=== PATIENT | male | born 1985 | race African-American/Black ===

== ENCOUNTER 2022-02-13 12:04 | Emergency (ER) | payer BC, SELFPAY ==
--- NOTE | ~2022-02-13 | US_ITS ---
EXAMINATION: US scrotum doppler EXAM DATE: 02/13/2022 12:53 INDICATION: Left testicle pain. TECHNIQUE: Multiple grayscale and Doppler images of the testicles and scrotum were obtained bilateral ly. There is no prior study for comparison. FINDINGS: Scanning in left-sided pubis region scar reportedly from surgery 2 years ago demonstrates f ocal hypoechoic region, tiny focus of color flow demonstrated but uncertain whether or not this is ar tifact or actual vascularity. Cannot confirm whether this is proteinaceous fluid or a solid mass. Right testicle measures 3.9 x 2.2 x 2.0 cm and is morphologically normal. Low resistance Doppler jennyfer w confirmed. The epididymis is unremarkable. Small varicocele. Left testicle measures 2.4 x 2.6 x 2.5 cm and is morphologically normal. Low resistance Doppler flow confirmed. The epididymis is unremarkable. Small varicocele. IMPRESSION: 1. Focal hypoechoic region at location of patient's left suprapubic scar, complex fluid collection v ersus mass. Keloid? Please clinically correlate for further management. 2. Small bilateral varicoceles. Reviewed, dictated and finalized at location A. IMPRESSION: 1. Focal hypoechoic region at location of patient's left suprapubic scar, comp mercedez fluid collection versus mass. Keloid? Please clinically correlate for furth er management. 2. Small bilateral varicoceles.
--- NOTE | ~2022-02-13 | CT_ITS ---
EXAMINATION: CT abdomen pelvis w con DATE: 02/13/2022 14:05 INDICATION: Left testicular pain. Left lower quadrant abdominal pain. TECHNIQUE: Computed tomography (CT) of the abdomen and pelvis was performed without intravenous contr ast. Automated exposure control and iterative reconstruction technique were employed. The dose-length product was 831.75 mGy-cm. COMPARISON: None. FINDINGS: The visualized portions of the lung bases are clear without pneumonia or pleural effusion. The heart size is normal. No pericardial effusion. There are cysts in the kidneys measuring up to 11 mm. The gallbladder, spleen, pancreas, adrenal glands, and kidneys are normal. There is diverticulosi s of the colon without evidence of diverticulitis. The appendix is normal. There are no dilated loops of bowel. There are no pathologically enlarged lymph nodes. There is no free intraperitoneal fluid. There is a 2.9 x 0.9 x 1.1 cm skin lesion in the left groin, reportedly at a site of prior surgery. T here is mild lumbar spondylosis. IMPRESSION: 1. No specific etiology for the patient's symptoms. 2. 2.9 x 0.9 x 1.1 cm skin lesion in left groin, reportedly at a site of prior surgery, which may be a keloid. Correlate with physical exam. Reviewed, dictated and finalized at location B.
[2022-02-13 12:07] VITALS: BP 129/70; PULSE 72; RESP 16; TEMP 36.8; O2SAT 100
[2022-02-13] MEDS: HYDROcodone/acetaminophen (*CRX) 5-325 MG TABLET 1 TAB PO (12:24)
--- NOTE | 2022-02-13 12:25 | ED.GENADULT ---
HPI - General Adult General Chief complaint: Unspecified Stated complaint: Testicle Pain, Swelling Time Seen by Provider: 02/13/22 12:12 Source: RN notes reviewed History of Present Illness HPI narrative: Patient presents to emergency department from home via EMS for left groin pain. Patient states that this morning he awoke with severe sharp pain in his left groin he states that the pain is located right over a previous scar that he had from surgery 2 years ago done at [facility]. 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 States pain does radiate down into the testicle Related Data Allergies Allergy/AdvReac Type Severity Reaction Status Date / Time No Known Allergies Allergy Verified 02/13/22 12:26 Review of Systems Review of Systems: Gen.: Denies fevers or chills ENT: Denies congestion Respiratory: Denies shortness of breath or cough CV: Denies chest pain or palpitations GI: Denies abdominal pain, nausea, vomiting or diarrhea see HPI Musculoskeletal: Denies back pain or muscle pain Neuro: Denies numbness, tingling, weakness or focal weakness Skin: Denies rash Except as documented, all other systems reviewed and negative [facility] Past Medical History Medical History (Updated 02/13/22 @ 14:31 by Simeon Kwon DO) Patient denies significant medical history Social History Social History (Updated 02/13/22 @ 12:26 by Simeon Kwon DO) Smoking status: Never smoker Exam Narrative: APPEARANCE: No acute distress, nontoxic, resting in bed EYES: EOMI HEENT: Normocephalic, atraumatic, OMM RESPIRATORY: No respiratory distress Clear to auscultation bilaterally with no rhonchi wheezing or rales. CARDIOVASCULAR: Regular rate and rhythm without murmurs rubs or gallops. ABDOMINAL: Soft, nontender, nondistended, no rebound or guarding : The left groin just above the left scrotum has a surgical scar present that does have a keloid present there is no erythema or fluctuance there is mild tenderness over the left testicle there is no swelling of the scrotum no erythema of the scrotum no skin lesions MUSCULOSKELETAl: Moves all extremities. No clubbing, cyanosis or edema. NEURO: Awake and alert. Following commands, speech normal, no focal deficits SKIN:: Warm, dry. No rashes lesions or abrasions PSYCHIATRIC: Normal affect/mood, Course Course Emergency Course: Patient states pain is improved at this time Discussed with patient results of workup and diagnosis. Discussed need for follow-up with primary care, proper use of medication, and reasons to return to the emergency department. Patient understands and agrees to current treatment plan Vital Signs Vital signs: Vital Signs Temperature 98.3 F 02/13/22 12:07 Pulse Rate 72 02/13/22 12:07 Respiratory Rate 16 02/13/22 12:07 Blood Pressure 129/70 02/13/22 12:07 Pulse Oximetry 100 02/13/22 12:07 Temperature 97.6 F 02/13/22 13:43 Pulse Rate 58 L 02/13/22 13:35 Respiratory Rate 18 02/13/22 13:35 Blood Pressure 127/74 02/13/22 13:35 Pulse Oximetry 100 02/13/22 13:35 Medical Decision Making Vital Signs Vital Signs: Vital Signs Temperature 98.3 F 02/13/22 12:07 Pulse Rate 72 02/13/22 12:07 Respiratory Rate 16 02/13/22 12:07 Blood Pressure 129/70 02/13/22 12:07 Pulse Oximetry 100 02/13/22 12:07 Temperature 97.6 F 02/13/22 13:43 Pulse Rate 58 L 02/13/22 13:35 Respiratory Rate 18 02/13/22 13:35 Blood Pressure 127/74 02/13/22 13:35 Pulse Oximetry 100 02/13/22 13:35 Lab Data Result diagrams: 02/13/22 12:56 02/13/22 13:28 Labs: Lab Results 02/13/22 02/13/22 04
[2022-02-13 13:01] LABS: Basophils Percent Auto 0.5 % (0.2-1.2); Eosinophils Absolute Auto 0.1 K/mm3 (0-0.3); Hematocrit 45.7 % (42.0-52.0); Hemoglobin 14.6 g/dL (14.0-18.0); Immature Granulocyte Absolute 0.04 K/mm3 (0.00-0.031); Immature Granulocyte Percent A 0.5 % (0-0.5); Lymphocytes Absolute Auto 2.68 K/mm3 (0.9-3.2); Lymphocytes Percent Auto 32.2 % (18.3-44.2); Mean Corpuscular HGB Conc 31.9 g/dl (32-36); Mean Corpuscular Hemoglobin 27.3 pg (26-34); Mean Corpuscular Volume 85.4 fl (80-100); Mean Platelet Volume 10.8 fl (7.4-10.4); Monocytes Absolute Auto 0.7 K/mm3 (0.1-0.6); Monocytes Percent Auto 8.9 % (2.6-8.5); Neutrophils Absolute Auto 4.8 K/mm3 (1.3-6.7); Neutrophils Percent Auto 56.9 % (45.5-73.1); Platelet Count Result 218 k/mm3 (150-375); Red Blood Count 5.35 M/mm3 (4.6-6.20); Red Cell Distribution Width 14.1 % (11.5-14.5); White Blood Count 8.3 K/mm3 (4.5-10.0)
[2022-02-13 13:15] LABS: Alanine Aminotransferase 13 U/L (4-50); Albumin Level 4.6 g/dL (3.5-5.1); Alkaline Phosphatase 36 U/L (38-126); Anion Gap 43 mmol/L (8-16); Aspartate Amino Transferase 20 U/L (17-59); Bilirubin,Total 0.8 mg/dL (0.2-1.3); Blood Urea Nitrogen 8 mg/dL (9-20); Calcium 4.8 mg/dL (8.4-10.2); Carbon Dioxide 18 mmol/L (22-30); Chloride 84 mmol/L (98-107); Estimated CRCL calculation 140 ml/min; Estimated Glomerular Filt Rate > 60; Glucose 75 mg/dL (65-110); Potassium 3.1 mmol/L (3.4-5.0); Sodium 145 mmol/L (137-145)
[2022-02-13 13:29] VITALS: RESP 18; O2SAT 100
[2022-02-13 13:35] VITALS: BP 127/74; PULSE 58; RESP 18; TEMP 36.3; O2SAT 100
[2022-02-13 13:42] LABS: Add Urine Microscopic? NO; Appearance Urine Clear (Clear); Bilirubin Urine Negative (Negative); Blood Urine Negative (Negative); Color Urine Yellow (Yellow); Glucose Urine UA Negative (Negative); Ketones Urine Negative (Negative); Leukocyte Esterase Ur Negative LEU/UL (Negative); Nitrate Urine Negative (Negative); Protein Urine Negative (Negative); Specific Grav Ur 1.025 (1.001-1.035); Urobilinogen Urine 0.2 mg/dL (<2.0); pH Urine 6.5 (5.0-9.0)
[2022-02-13 13:43] VITALS: TEMP 36.4
[2022-02-13] MEDS: SODIUM CHLORIDE 0.9% IV 1,000 ML 999 ML IV CONT (13:43)
[2022-02-13 14:00] LABS: Anion Gap 5 mmol/L (8-16); Blood Urea Nitrogen 10 mg/dL (9-20); Carbon Dioxide 24 mmol/L (22-30); Chloride 105 mmol/L (98-107); Estimated CRCL calculation 114 ml/min; Estimated Glomerular Filt Rate > 60; Glucose 91 mg/dL (65-110); Potassium 3.9 mmol/L (3.4-5.0); Sodium 134 mmol/L (137-145)
[2022-02-13 14:46] VITALS: BP 137/86; PULSE 54; RESP 18; O2SAT 100
== END 2022-02-13 14:48 | disposition home or self-care (01) ==
PROVIDERS: Emergency Provider Emergency Medicine
DX: L91.0 Hypertrophic scar (principal); R10.32 Left lower quadrant pain; I86.1 Scrotal varices
CPT/HCPCS: 36415; 74177; 76870; 80048; 80053; 81003; 85025; 93976; 96360; 99284; A9270; J7030; Q9967

== ENCOUNTER 2022-03-30 20:58 | Emergency (ER) | payer BC, SELFPAY ==
[2022-03-30 21:50] VITALS: BP 143/82; PULSE 75; RESP 16; TEMP 36.8; O2SAT 100
[2022-03-30 23:23] VITALS: BP 143/97; PULSE 67; RESP 18; TEMP 36.3; O2SAT 100
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
[2022-03-30] MEDS: ONDANSETRON HCL ODT 4 MG TABLET PO (23:42)
[2022-03-31 00:24] LABS: Alanine Aminotransferase 13 U/L (6-50); Albumin Level 4.2 g/dL (3.5-5.1); Alkaline Phosphatase 51 U/L (38-126); Anion Gap 3 mmol/L (8-16); Aspartate Amino Transferase 24 U/L (17-59); Bilirubin,Total 0.9 mg/dL (0.2-1.3); Blood Urea Nitrogen 14 mg/dL (9-20); Carbon Dioxide 30 mmol/L (22-30); Chloride 107 mmol/L (98-107); Estimated CRCL calculation 88 ml/min; Estimated Glomerular Filt Rate > 60; Glucose 97 mg/dL (65-110); Lipase 177 U/L (23-300); Sodium 140 mmol/L (137-145)
[2022-03-31 00:27] LABS: Basophils Absolute Auto 0.1 K/mm3 (0.0-0.1); Basophils Percent Auto 0.5 % (0.2-1.2); Eosinophils Absolute Auto 0.1 K/mm3 (0-0.3); Eosinophils Percent Auto 1.3 % (0-4.4); Hematocrit 41.8 % (42.0-52.0); Immature Granulocyte Absolute 0.04 K/mm3 (0.00-0.031); Immature Granulocyte Percent A 0.4 % (0-0.5); Lymphocytes Absolute Auto 3.07 K/mm3 (0.9-3.2); Lymphocytes Percent Auto 33.3 % (18.3-44.2); Mean Corpuscular HGB Conc 33.5 g/dl (32-36); Mean Corpuscular Hemoglobin 27.8 pg (26-34); Mean Corpuscular Volume 83.1 fl (80-100); Mean Platelet Volume 11.5 fl (7.4-10.4); Monocytes Percent Auto 11.3 % (2.6-8.5); Neutrophils Absolute Auto 4.9 K/mm3 (1.3-6.7); Neutrophils Percent Auto 53.2 % (45.5-73.1); Platelet Count Result 203 k/mm3 (150-375); Red Blood Count 5.03 M/mm3 (4.6-6.20); White Blood Count 9.2 K/mm3 (4.5-10.0)
[2022-03-31 01:02] LABS: Amphetamine Screen Urine Negative (Negative); Barbiturate Screen Urine Negative (Negative); Benzodiazepines Screen Urine Negative (Negative); Cannabinoid Screen Urine Positive (Negative); Cocaine Screen Urine Negative (Negative); Methadone Screen Urine Negative (Negative); Opiate Screen Urine Negative (Negative); Phencyclidine Screen Urine Negative (Negative)
[2022-03-31 01:30] VITALS: BP 124/89; PULSE 57; RESP 18; O2SAT 100
== END 2022-03-31 01:31 | disposition home or self-care (01) ==
PROVIDERS: Physician Assistant; Emergency Provider Emergency Medicine
DX: F12.10 Cannabis abuse, uncomplicated (principal)
CPT/HCPCS: 36415; 80053; 80307; 83690; 85025; 99283; A9270

== ENCOUNTER 2022-07-13 11:41 | Emergency (ER) | payer BC, SELFPAY ==
--- NOTE | ~2022-07-13 | XR_ITS ---
EXAMINATION: XR chest 2V DATE: 07/13/2022 12:07 INDICATION: Cough TECHNIQUE: Frontal and lateral views of the chest are obtained COMPARISON: None available FINDINGS: The lungs are free of acute opacities. No pleural effusion or pneumothorax. The cardiomedia stinal silhouette is normal. The visualized bones and soft tissues are unremarkable. IMPRESSION: 1. No acute cardiopulmonary abnormality. Reviewed, dictated and finalized at location B.
[2022-07-13 12:00] VITALS: BP 125/83; PULSE 80; RESP 16; TEMP 36.4; O2SAT 97
[2022-07-13 12:22] VITALS: O2SAT 99
--- NOTE | 2022-07-13 13:32 | ED.GENADULT ---
HPI - General Adult General Chief complaint: Upper Respiratory Infection Stated complaint: cough Time Seen by Provider: 07/13/22 12:00 History of Present Illness HPI narrative: Patient is a 37-year-old male who presents ER with cough. Ongoing over the last 3 weeks. Associate with sinus congestion and thick postnasal drip. Worse at night when he is laying down flat. Associated productive cough. No fevers or chills or sweats. Has tried some [id number] decongestants without improvement. Related Data Allergies Allergy/AdvReac Type Severity Reaction Status Date / Time No Known Allergies Allergy Verified 07/13/22 12:19 Review of Systems Constitutional: Constitutional: Denies chills, Denies fatigue and Denies fever(s) ENT: Reports nasal congestion and Reports sore throat Respiratory: Respiratory: Reports cough, Denies dyspnea and Denies wheezing Gastrointestinal: Gastrointestinal: Denies abdominal pain, Denies nausea and Denies vomiting PMFSH Past Medical History Medical History (Updated 07/13/22 @ 13:39 by Jani Ponce MD) Patient denies significant medical history Surgical History Surgical History (Updated 07/13/22 @ 13:39 by Jani Ponce MD) No pertinent past surgical history Social History Social History (Updated 02/13/22 @ 12:26 by Simeon Kwon DO) Smoking status: Never smoker Exam Narrative: GENERAL: Well-appearing, well-nourished, and in no acute distress. HEAD: Normocephalic, atraumatic. EYES: PERRL and EOMI. ENT: Dry mucous membranes, normal-appearing posterior oropharynx without tonsillar hypertrophy or exudate. Uvula midline nonedematous. TMs normal bilaterally. NECK: Supple. CHEST: Clear to auscultation. No respiratory distress. HEART: Regular rate and rhythm. Normal peripheral pulses. EXTREMITIES: Normal range of motion. No edema. NEURO: Alert and oriented x3. PSYCH: Normal mood and affect. Course Course Emergency Course: Discussed supportive therapy. Encouraged humidified air at bedside as well as nasal saline washes, guaifenesin, and Cepacol. Vital Signs Vital signs: Vital Signs Temperature 97.5 F L 07/13/22 12:00 Pulse Rate 80 07/13/22 12:00 Respiratory Rate 16 07/13/22 12:00 Blood Pressure 125/83 07/13/22 12:00 Pulse Oximetry 97 07/13/22 12:00 Oxygen Delivery Room Air 07/13/22 12:00 Temperature 97.5 F L 07/13/22 12:00 Pulse Rate 80 07/13/22 12:00 Respiratory Rate 16 07/13/22 12:00 Blood Pressure 125/83 07/13/22 12:00 Pulse Oximetry 99 07/13/22 12:22 Oxygen Delivery Room Air 07/13/22 12:22 Medical Decision Making Vital Signs Vital Signs: Vital Signs Temperature 97.5 F L 07/13/22 12:00 Pulse Rate 80 07/13/22 12:00 Respiratory Rate 16 07/13/22 12:00 Blood Pressure 125/83 07/13/22 12:00 Pulse Oximetry 97 07/13/22 12:00 Oxygen Delivery Room Air 07/13/22 12:00 Temperature 97.5 F L 07/13/22 12:00 Pulse Rate 80 07/13/22 12:00 Respiratory Rate 16 07/13/22 12:00 Blood Pressure 125/83 07/13/22 12:00 Pulse Oximetry 99 07/13/22 12:22 Oxygen Delivery Room Air 07/13/22 12:22 Imaging Data Radiologist's impression: ITS Impressions Chest X-Ray 07/13/22 12:08 IMPRESSION: 1. No acute cardiopulmonary abnormality. Discharge Plan Discharge Clinical Impression: Upper respiratory infection Patient Disposition: Home, Self-Care Condition: Stable Instructions: Upper Respiratory Infection (ED) Additional Instructions: Return to the ER if you cannot breathe, you cannot keep down food or water, you have chest pain with exertion, you have additional concerns. Prescriptions: [place] Nasal Mist 0.65 % aerosol,spray 2 spray intranasal QID Qty: 44 0RF guaifenesin [Robafen] 100 mg/5 mL liquid 200 mg PO Q4H Qty: 473 0RF Cepacol Sore Throat (alexi-men) 15-2.6 mg lozenge 1 kenny mucous membrane Q2-4H PRN (Reason: sore throat)
== END 2022-07-13 14:05 | disposition home or self-care (01) ==
PROVIDERS: Emergency Provider Emergency Medicine
DX: J06.9 Acute upper respiratory infection, unspecified (principal)
CPT/HCPCS: 71046; 99283

== ENCOUNTER 2022-08-24 22:40 | Emergency (ER) | payer BC, SELFPAY ==
--- NOTE | ~2022-08-24 | XR_ITS ---
EXAMINATION: XR chest 1V portable INDICATION: Chest pain TECHNIQUE: Portable AP chest at 2256 hours COMPARISON: 07/13/2022 FINDINGS: The lungs are free of acute opacities. No pleural effusion or pneumothorax. The cardiomedia stinal silhouette is normal. IMPRESSION: 1. No acute cardiopulmonary abnormality. Reviewed, dictated and finalized at location F.
--- NOTE | 2022-08-24 22:40 | ECG_ITS ---
Measurements Intervals [place] Rate: 68 P: 64 FL: 187 QRS: 19 QRSD: 83 T: 45 QT: 372 QTc: 397 Interpretive Statements SINUS RHYTHM NORMAL ECG NO PREVIOUS ECG AVAILABLE FOR COMPARISON Electronically Signed On 08-25-2022 16:38:06 CDT by Wilver Mandujano M.D.
[2022-08-24 22:46] VITALS: BP 128/76; PULSE 66; RESP 12; TEMP 37.1; O2SAT 100
[2022-08-24 22:52] LABS: Basophils Absolute Auto 0.1 K/mm3 (0.0-0.1); Basophils Percent Auto 0.5 % (0.2-1.2); Eosinophils Absolute Auto 0.1 K/mm3 (0-0.3); Hematocrit 42.2 % (42.0-52.0); Immature Granulocyte Absolute 0.06 K/mm3 (0.00-0.031); Immature Granulocyte Percent A 0.6 % (0-0.5); Lymphocytes Absolute Auto 3.35 K/mm3 (0.9-3.2); Lymphocytes Percent Auto 32.7 % (18.3-44.2); Mean Corpuscular HGB Conc 33.2 g/dl (32-36); Mean Corpuscular Hemoglobin 27.5 pg (26-34); Mean Corpuscular Volume 82.9 fl (80-100); Mean Platelet Volume 11.7 fl (7.4-10.4); Monocytes Percent Auto 9.3 % (2.6-8.5); Neutrophils Absolute Auto 5.7 K/mm3 (1.3-6.7); Neutrophils Percent Auto 55.9 % (45.5-73.1); Platelet Count Result 219 k/mm3 (150-375); Red Blood Count 5.09 M/mm3 (4.6-6.20); Red Cell Distribution Width 14.3 % (11.5-14.5); White Blood Count 10.2 K/mm3 (4.5-10.0)
[2022-08-24] MEDS: HYDROmorphone HCL INJ (*CRX) 1 MG/ML SYR IV PUSH (22:53)
[2022-08-24 23:01] LABS: Partial Thromboplastin Time 30.8 SECONDS (22.3-36.8); Prothrombin Time 12.8 Seconds (11.1-14.7)
[2022-08-24 23:05] LABS: Alanine Aminotransferase 19 U/L (6-50); Albumin Level 4.5 g/dL (3.5-5.1); Alkaline Phosphatase 50 U/L (38-126); Anion Gap 8 mmol/L (8-16); Aspartate Amino Transferase 26 U/L (17-59); Blood Urea Nitrogen 15 mg/dL (9-20); Calcium 8.9 mg/dL (8.4-10.2); Carbon Dioxide 24 mmol/L (22-30); Chloride 103 mmol/L (98-107); Estimated CRCL calculation 112 ml/min; Estimated Glomerular Filt Rate > 60; Glucose 94 mg/dL (65-110); Lipase 322 U/L (23-300); Sodium 135 mmol/L (137-145)
--- NOTE | 2022-08-24 23:12 | ED.GENADULT ---
HPI - General Adult General Chief complaint: Chest Pain Stated complaint: CP POSSIBLE STEMI Time Seen by Provider: 08/24/22 22:47 History of Present Illness HPI narrative: Patient 77-year-old gentleman who presents the emergency department with a chief complaint of chest pain. Patient reports he has history of high cholesterol and reports for the last several days has been having some discomfort in his chest but today it got worse. Patient had significant heaviness or tightness patient reports that it radiates into his upper chest. Patient reports upon arrival to the emergency department he got nauseated. Patient called EMS today and was transported to our facility. The patient reports no prior cardiac cath or stress test. Related Data Allergies Allergy/AdvReac Type Severity Reaction Status Date / Time No Known Allergies Allergy Verified 08/24/22 22:49 Review of Systems Review of Systems: A 10 system review of systems was completed on the patient and is negative except for what is stated in the HPI. Nursing and ancillary documentation was reviewed. PMFSH Past Medical History Medical History Patient denies significant medical history Surgical History Surgical History No pertinent past surgical history Social History Social History Smoking status: Never smoker Exam Narrative: GENERAL: Well-appearing, well-nourished, and in no acute distress. HEAD: Normocephalic, atraumatic. EYES: PERRLA and EOMI. ENT: Nares clear, no rhinorrhea or epistaxis. Mucous membranes moist. NECK: Supple. CHEST: Clear to auscultation. No respiratory distress. HEART: Regular rate and rhythm. No murmur heard. Normal peripheral pulses. ABDOMEN: Soft, nontender, nondistended, normal active bowel sounds. EXTREMITIES: Normal range of motion. No edema. SKIN: Warm, dry, no rash. NEURO: No focal deficits. Alert and oriented x3. PSYCH: Normal mood and affect. Course Course Emergency Course: EKG is sinus rhythm rate of [address] elevation or ST depression Vital Signs Vital signs: Vital Signs Temperature 37.1 C 08/24/22 22:46 Pulse Rate 66 08/24/22 22:46 Respiratory Rate 12 08/24/22 22:46 Blood Pressure 128/76 08/24/22 22:46 Pulse Oximetry 100 08/24/22 22:46 Oxygen Delivery Room Air 08/24/22 22:46 Temperature 36.7 C 08/25/22 01:36 Pulse Rate 56 L 08/25/22 02:30 Respiratory Rate 16 08/25/22 02:30 Blood Pressure 112/82 08/25/22 02:30 Pulse Oximetry 100 08/25/22 02:30 Oxygen Delivery Room Air 08/24/22 22:46 Medical Decision Making Vital Signs Vital Signs: Vital Signs Temperature 37.1 C 08/24/22 22:46 Pulse Rate 66 08/24/22 22:46 Respiratory Rate 12 08/24/22 22:46 Blood Pressure 128/76 08/24/22 22:46 Pulse Oximetry 100 08/24/22 22:46 Oxygen Delivery Room Air 08/24/22 22:46 Temperature 36.7 C 08/25/22 01:36 Pulse Rate 56 L 08/25/22 02:30 Respiratory Rate 16 08/25/22 02:30 Blood Pressure 112/82 08/25/22 02:30 Pulse Oximetry 100 08/25/22 02:30 Oxygen Delivery Room Air 08/24/22 22:46 Lab Data Result diagrams: 08/24/22 22:47 08/24/22 22:47 Labs: Lab Results 08/24/22 08/24/22 08/24/22 Range/Units 22:47 22:47 22:47 WBC 10.2 H (4.5-10.0) K/mm3 RBC 5.09 (4.6-6.20) M/mm3 Hgb 14.0 (14.0-18.0) g/dL Hct 42.2 (42.0-52.0) % MCV 82.9 (80-100) fl MCH 27.5 (26-34) pg MCHC 33.2 (32-36) g/dl RDW 14.3 (11.5-14.5) % Plt Count 219 (150-375) k/mm3 MPV 11.7 H (7.4-10.4) fl Immature Gran % (Auto) 0.6 H (0-0.5) % Neut % (Auto) 55.9 (45.5-73.1) % Lymph % (Auto) 32.7 (18.3-44.2) % [place] % (Auto) 9.3 H (2.6-8.5) % Eos % (Auto) 1.0 (0-4.4) % Baso % (Auto) 0.5 (0.
[2022-08-24 23:17] LABS: Troponin I 0.016 ng/mL (0.000-0.034)
[2022-08-24 23:30] VITALS: BP 120/66; PULSE 58; RESP 16; O2SAT 99
[2022-08-25 00:30] VITALS: BP 119/68; PULSE 54; RESP 16; TEMP 36.8; O2SAT 100
[2022-08-25 01:36] VITALS: BP 113/71; PULSE 55; RESP 16; TEMP 36.7; O2SAT 99
--- NOTE | 2022-08-25 01:38 | PC.NURSE ---
sleeping no distress, still has discomfort with some positions
[2022-08-25 02:30] VITALS: BP 112/82; PULSE 56; RESP 16; O2SAT 100
[2022-08-25 02:32] LABS: Troponin I < 0.012 ng/mL (0.000-0.034)
[2022-08-25] MEDS: KETOROLAC 15 MG/ML VIAL (*BKC) IV PUSH (03:24)
--- NOTE | 2022-08-25 03:46 | PC.NURSE ---
noted patient sleeping comfortably at this time
[2022-08-25 04:15] VITALS: BP 104/68; PULSE 56; RESP 18; O2SAT 99
== END 2022-08-25 04:24 | disposition home or self-care (01) ==
PROVIDERS: Emergency Provider Emergency Medicine
DX: R07.89 Other chest pain (principal); E78.00 Pure hypercholesterolemia, unspecified
CPT/HCPCS: 36415; 71045; 80053; 83690; 84484; 85025; 85610; 85730; 93005; 96374; 99284; J1170; J1885

== ENCOUNTER 2022-09-20 13:40 | Emergency (ER) | payer BC, SELFPAY ==
[2022-09-20 14:10] VITALS: BP 131/85; PULSE 78; RESP 18; TEMP 36.6; O2SAT 97
[2022-09-20 15:28] LABS: Appearance Urine Clear (Clear); Bilirubin Urine Negative (Negative); Blood Urine Negative (Negative); Color Urine Yellow (Yellow); Glucose Urine UA Negative (Negative); Ketones Urine Negative (Negative); Leukocyte Esterase Ur Negative LEU/UL (Negative); Nitrate Urine Negative (Negative); Protein Urine Trace mg/dL (Negative); Specific Grav Ur 1.015 (1.001-1.035); Urobilinogen Urine 0.2 mg/dL (<2.0)
[2022-09-20 15:42] LABS: Add Urine Microscopic? YES; Bacteria Urine Trace /hpf; Mucus Urine Rare /lpf; RBC Urine 0-2 /hpf (0-2); Squamous Epithelial Cell Urine Rare /hpf (Few); WBC Urine 0-3 /hpf
[2022-09-20 15:43] LABS: Basophils Percent Auto 0.4 % (0.2-1.2); Hematocrit 43.4 % (42.0-52.0); Hemoglobin 14.8 g/dL (14.0-18.0); Immature Granulocyte Absolute 0.02 K/mm3 (0.00-0.031); Immature Granulocyte Percent A 0.4 % (0-0.5); Lymphocytes Absolute Auto 1.52 K/mm3 (0.9-3.2); Lymphocytes Percent Auto 31.3 % (18.3-44.2); Mean Corpuscular HGB Conc 34.1 g/dl (32-36); Mean Corpuscular Hemoglobin 27.3 pg (26-34); Mean Corpuscular Volume 80.1 fl (80-100); Mean Platelet Volume 12.2 fl (7.4-10.4); Monocytes Absolute Auto 1.2 K/mm3 (0.1-0.6); Monocytes Percent Auto 25.1 % (2.6-8.5); Neutrophils Absolute Auto 2.1 K/mm3 (1.3-6.7); Neutrophils Percent Auto 42.8 % (45.5-73.1); Platelet Count Result 156 k/mm3 (150-375); Red Blood Count 5.42 M/mm3 (4.6-6.20); Red Cell Distribution Width 13.8 % (11.5-14.5); White Blood Count 4.9 K/mm3 (4.5-10.0)
[2022-09-20 15:51] LABS: Alanine Aminotransferase 19 U/L (6-50); Albumin Level 4.5 g/dL (3.5-5.1); Alkaline Phosphatase 43 U/L (38-126); Anion Gap 9 mmol/L (8-16); Aspartate Amino Transferase 42 U/L (17-59); Bilirubin,Total 0.6 mg/dL (0.2-1.3); Blood Urea Nitrogen 16 mg/dL (9-20); Calcium 8.8 mg/dL (8.4-10.2); Carbon Dioxide 26 mmol/L (22-30); Chloride 100 mmol/L (98-107); Estimated CRCL calculation 415 ml/min; Estimated Glomerular Filt Rate > 60; Glucose 103 mg/dL (65-110); Lipase 371 U/L (23-300); Potassium 3.6 mmol/L (3.4-5.0); Sodium 135 mmol/L (137-145)
[2022-09-20 16:01] LABS: Influenza A QL RT-PCR Negative (Negative); Influenza B QL RT-PCR Negative (Negative); SARS-CoV-2 RNA PCR Positive
[2022-09-20 16:02] LABS: Platelet Estimate Adequate (Adequate); Schistocytes None Seen (NORMAL)
--- NOTE | 2022-09-20 16:14 | ED.FEVER ---
HPI - Fever General Chief Complaint: Fever Stated Complaint: chills, diarrhea Time Seen by Provider: 09/20/22 15:29 Source: patient Mode of arrival: ambulatory Limitations: no limitations History of Present Illness HPI Narrative: This is a 37 year old male that presents to the ER for diarrhea and chills. Ongoing since Sunday. Reports he was around some classmates that were sick. He is not vaccinated for COVID. Denies fever, abdominal pain, vomiting, cough, congestion or sore throat. Related Data Allergies Allergy/AdvReac Type Severity Reaction Status Date / Time No Known Allergies Allergy Verified 08/24/22 22:49 Review of Systems Review of Systems: CONSTITUTIONAL: Reports chills. Denies fever ENT: Reports congestion, sore throat RESPIRATORY: Denies cough GASTROINTESTINAL: Reports diarrhea. Denies abdominal pain, nausea, vomiting All systems reviewed & are unremarkable except as noted in HPI and below PMFSH Past Medical History Medical History Patient denies significant medical history Surgical History Surgical History No pertinent past surgical history Social History Social History Smoking status: Never smoker Exam Narrative: GENERAL: Well-appearing, well-nourished, and in no acute distress. HEAD: Normocephalic, atraumatic. EYES: EOMI. CHEST: Clear to auscultation. No respiratory distress. No wheezes rales or rhonchi HEART: Regular rate and rhythm. No murmur heard. Normal peripheral pulses. ABDOMEN: Soft, nontender, nondistended, normal active bowel sounds. EXTREMITIES: Normal range of motion. No edema. SKIN: Warm, dry, no rash. NEURO: No focal deficits. Alert and oriented x3. PSYCH: Normal mood and affect Course Vital Signs Vital signs: Vital Signs Temperature 97.8 F 09/20/22 14:10 Pulse Rate 78 09/20/22 14:10 Respiratory Rate 18 09/20/22 14:10 Blood Pressure 131/85 09/20/22 14:10 Pulse Oximetry 97 09/20/22 14:10 Oxygen Delivery Room Air 09/20/22 14:10 Temperature 97.8 F 09/20/22 14:10 Pulse Rate 74 09/20/22 17:35 Respiratory Rate 15 09/20/22 17:35 Blood Pressure 117/79 09/20/22 17:35 Pulse Oximetry 97 09/20/22 17:35 Oxygen Delivery Room Air 09/20/22 14:10 MDM - Fever MDM Narrative Medical decision making narrative: Patient presents to the ER for diarrhea and chills ongoing over the last couple of days. He is afebrile and nontoxic-appearing. His vitals are stable. CBC without concerning findings. Metabolic panel with mild dehydration. Patient given a liter of IV fluids in the ED. COVID screen is positive. Patient is not vaccinated. He was updated on case findings. Wishes to have treatment with Paxlovid. He was instructed on other continued symptomatic care of viral infection. He is to follow-up with primary care provider. He was given warnings to return to the ER Lab Data Attestation: I reviewed the patient's lab results. Result diagrams: 09/20/22 15:32 09/20/22 15:32 Labs: Lab Results 09/20/22 09/20/22 09/20/22 Range/Units 15:20 15:20 15:32 WBC 4.9 (4.5-10.0) K/mm3 RBC 5.42 (4.6-6.20) M/mm3 Hgb 14.8 (14.0-18.0) g/dL Hct 43.4 (42.0-52.0) % MCV 80.1 (80-100) fl MCH 27.3 (26-34) pg MCHC 34.1 (32-36) g/dl RDW 13.8 (11.5-14.5) % Plt Count 156 (150-375) k/mm3 MPV 12.2 H (7.4-10.4) fl Immature Gran % (Auto) 0.4 (0-0.5) % Neut % (Auto) 42.8 L (45.5-73.1) % Lymph % (Auto) 31.3 (18.3-44.2) % [place] % (Auto) 25.1 H (2.6-8.5) % Eos % (Auto) 0.0 (0-4.4) % Baso % (Auto) 0.4 (0.2-1.2) % Lymph # (Auto) 1.52 (0.9-3.2) K/mm3 [place] # (Auto) 1.2 H (0.1-0.6) K/mm3 Eos # (Auto) 0.0 (0-0.3) K/mm3 Baso # (Auto) 0.0 (0.0-0.1) K/mm3 Abs Katarzyna
[2022-09-20] MEDS: SODIUM CHLORIDE 0.9% IV 1,000 ML 999 ML IV CONT (16:21)
[2022-09-20 17:35] VITALS: BP 117/79; PULSE 74; RESP 15; O2SAT 97
[2022-09-20 18:21] VITALS: BP 152/84; PULSE 88; RESP 16; TEMP 37.3; O2SAT 97
== END 2022-09-20 18:22 | disposition home or self-care (01) ==
PROVIDERS: Emergency Medicine; Emergency Provider Emergency Medicine
DX: U07.1 COVID-19 (principal); Z28.310 Unvaccinated for COVID-19
CPT/HCPCS: 36415; 80053; 81001; 83690; 85025; 87636; 96360; 99283; J7030

== ENCOUNTER 2022-12-18 15:39 | Emergency (ER) | payer BC, SELFPAY ==
[2022-12-18 15:52] VITALS: BP 143/87; PULSE 66; RESP 16; TEMP 36.8; O2SAT 100
[2022-12-18 16:30] LABS: Basophils Percent Auto 0.4 % (0.2-1.2); Eosinophils Absolute Auto 0.1 K/mm3 (0-0.3); Eosinophils Percent Auto 1.2 % (0-4.4); Hemoglobin 14.7 g/dL (14.0-18.0); Immature Granulocyte Absolute 0.03 K/mm3 (0.00-0.031); Immature Granulocyte Percent A 0.4 % (0-0.5); Lymphocytes Absolute Auto 2.59 K/mm3 (0.9-3.2); Lymphocytes Percent Auto 33.1 % (18.3-44.2); Mean Corpuscular HGB Conc 32.7 g/dl (32-36); Mean Corpuscular Hemoglobin 27.4 pg (26-34); Mean Corpuscular Volume 83.8 fl (80-100); Mean Platelet Volume 10.9 fl (7.4-10.4); Monocytes Absolute Auto 0.7 K/mm3 (0.1-0.6); Monocytes Percent Auto 8.3 % (2.6-8.5); Neutrophils Absolute Auto 4.4 K/mm3 (1.3-6.7); Neutrophils Percent Auto 56.6 % (45.5-73.1); Platelet Count Result 240 k/mm3 (150-375); Red Blood Count 5.37 M/mm3 (4.6-6.20); White Blood Count 7.8 K/mm3 (4.5-10.0)
[2022-12-18 16:51] LABS: Alanine Aminotransferase 17 U/L (6-50); Albumin Level 4.9 g/dL (3.5-5.1); Alkaline Phosphatase 52 U/L (38-126); Anion Gap 5 mmol/L (8-16); Aspartate Amino Transferase 32 U/L (17-59); Bilirubin,Total 1.5 mg/dL (0.2-1.3); Blood Urea Nitrogen 10 mg/dL (9-20); Calcium 9.1 mg/dL (8.4-10.2); Carbon Dioxide 29 mmol/L (22-30); Chloride 100 mmol/L (98-107); Estimated Glomerular Filt Rate > 60; Glucose 87 mg/dL (65-110); Potassium 3.9 mmol/L (3.4-5.0); Sodium 134 mmol/L (137-145)
[2022-12-18 16:53] LABS: Ethanol < 10 mg/dL (<10)
[2022-12-18 17:21] LABS: Thyroid Stimulating Hormone 0.421 uIU/mL (0.465-4.680)
[2022-12-18 17:27] LABS: Influenza A QL RT-PCR Negative (Negative); Influenza B QL RT-PCR Negative (Negative); RSV RNA, RT-PCR Negative (Negative); SARS-CoV-2 RNA PCR Negative
[2022-12-18 17:58] LABS: Appearance Urine Clear (Clear); Bilirubin Urine 1+ (Negative); Blood Urine Negative (Negative); Color Urine Yellow (Yellow); Glucose Urine UA Negative (Negative); Ketones Urine 1+ mg/dL (Negative); Leukocyte Esterase Ur Negative LEU/UL (Negative); Nitrate Urine Negative (Negative); Protein Urine Trace mg/dL (Negative); Specific Grav Ur 1.025 (1.001-1.035); Urobilinogen Urine 0.2 mg/dL (<2.0)
[2022-12-18 18:03] LABS: Add Urine Microscopic? YES; Bacteria Urine Trace /hpf; Mucus Urine Few /lpf; WBC Urine 0-3 /hpf
[2022-12-18 18:22] LABS: Amphetamine Screen Urine Negative (Negative); Barbiturate Screen Urine Negative (Negative); Benzodiazepines Screen Urine Negative (Negative); Cannabinoid Screen Urine Positive (Negative); Cocaine Screen Urine Negative (Negative); Methadone Screen Urine Negative (Negative); Opiate Screen Urine Negative (Negative); Phencyclidine Screen Urine Negative (Negative)
[2022-12-18 19:01] VITALS: BP 139/82; PULSE 64; RESP 16; O2SAT 98
--- NOTE | 2022-12-18 19:23 | PC.NURSE ---
Pt states I feel like people are putting something in the food. I feel like my mom is putting something in my food to hurt me . When asked pt if he's ever been diagnosed with a mental health disorder pt states I was told all my life that I'm retarded. But now, my mind is waking up and I'm figuring things out . Pt denies HI, SI, or hallucinations. He is calm and cooperative at this time.
--- NOTE | 2022-12-18 19:34 | ED.GENADULT ---
HPI - General Adult General Chief complaint: Psychiatric Symptoms Stated complaint: feel like someone is trying to poison him Time Seen by Provider: 12/18/22 19:13 History of Present Illness HPI narrative: Patient patient is a 37-year-old gentleman who presents the emergency department with chief complaint of paranoid thoughts patient reports that he feels as though his mother is out to get him because he has been successful after he has gotten out of trouble. The patient denies suicidal or homicidal ideation patient reports no thoughts of harming himself or thoughts of harming others. Patient states he is just scared that his family may be out to get him now that he has had success in his life. Related Data Allergies Allergy/AdvReac Type Severity Reaction Status Date / Time No Known Allergies Allergy Verified 08/24/22 22:49 Review of Systems Review of Systems: A 10 system review of systems was completed on the patient and is negative except for what is stated in the HPI. Nursing and ancillary documentation was reviewed. PMFSH Past Medical History Medical History Patient denies significant medical history Surgical History Surgical History No pertinent past surgical history Social History Social History Smoking status: Never smoker Substance use type: marijuana Exam Narrative: GENERAL: Well-appearing, well-nourished, and in no acute distress. HEAD: Normocephalic, atraumatic. EYES: PERRLA and EOMI. ENT: Nares clear, no rhinorrhea or epistaxis. Mucous membranes moist. NECK: Supple. CHEST: Clear to auscultation. No respiratory distress. HEART: Regular rate and rhythm. No murmur heard. Normal peripheral pulses. ABDOMEN: Soft, nontender, nondistended, normal active bowel sounds. EXTREMITIES: Normal range of motion. No edema. SKIN: Warm, dry, no rash. NEURO: No focal deficits. Alert and oriented x3. PSYCH: Normal mood and affect. Course Vital Signs Vital signs: Vital Signs Temperature 36.8 C 12/18/22 15:52 Pulse Rate 66 12/18/22 15:52 Respiratory Rate 16 12/18/22 15:52 Blood Pressure 143/87 H 12/18/22 15:52 Pulse Oximetry 100 12/18/22 15:52 Oxygen Delivery Room Air 12/18/22 15:52 Temperature 36.8 C 12/18/22 15:52 Pulse Rate 64 12/18/22 19:01 Respiratory Rate 16 12/18/22 19:01 Blood Pressure 139/82 12/18/22 19:01 Pulse Oximetry 98 12/18/22 19:01 Oxygen Delivery Room Air 12/18/22 15:52 Medical Decision Making MDM Narrative Medical decision making narrative: Patient is not actively suicidal or homicidal but is expressing significant extreme paranoid thoughts. Laboratory studies were obtained on this patient as well as COVID and influenza testing these of all been negative the patient's toxicology study was just positive for cannabinoids patient's TSH is 0.421 this is slightly low and should be followed up by his primary care provider. Patient is medically cleared for psychiatric evaluation referral transfer and admission. Vital Signs Vital Signs: Vital Signs Temperature 36.8 C 12/18/22 15:52 Pulse Rate 66 12/18/22 15:52 Respiratory Rate 16 12/18/22 15:52 Blood Pressure 143/87 H 12/18/22 15:52 Pulse Oximetry 100 12/18/22 15:52 Oxygen Delivery Room Air 12/18/22 15:52 Temperature 36.8 C 12/18/22 15:52 Pulse Rate 64 12/18/22 19:01 Respiratory Rate 16 12/18/22 19:01 Blood Pressure 139/82 12/18/22 19:01 Pulse Oximetry 98 12/18/22 19:01 Oxygen Delivery Room Air 12/18/22 15:52 Lab Data 12/18/22 16:22 12/18/22 16:22 Labs: Lab Results 12/18/22 12/18/22 12/18/22 Range/Units 16:22 16:22 16:22 WBC 7.8 (4.5-10.0) K/mm3 RBC 5.37 (4.6-6.20) M/mm3 Hgb 14.7 (14.0-18.0) g/dL Hct 45.0
--- NOTE | 2022-12-18 20:40 | PC.NURSE ---
Pt standing in the doorway of his room. Stating I'm ready to go, I don't want to miss my bus . Pt states he was seen by the ER provider and [facility] was here, but had to leave. Informed pt I am unsure when [facility] worker will return. Dr. Huff and battery charger notified that pt wants to leave. Per Dr. Huff pt is ok to leave AMA. Pt continues to refuse suicidal or homicidal ideation. Instructed pt that he should return to ER if he develops SI or HI or any other concerning symptoms. Informed pt risks of leaving such as worsening of condition, pain, and . Pt verbalized understanding and signed AMA form.
== END 2022-12-18 20:33 | disposition left against medical advice (07) ==
PROVIDERS: Emergency Medicine; Emergency Provider Emergency Medicine
DX: F22 Delusional disorders (principal); Z20.822 Contact with and (suspected) exposure to COVID-19
CPT/HCPCS: 36415; 80053; 80307; 81001; 84443; 85025; 87637; 99284